=== PATIENT | female | born 1935 | race Two or more races ===

== ENCOUNTER 2020-09-18 22:55 | Inpatient (IN) | payer MEDICARE, OTHER ==
[~2020-09-18] VITALS: Ht 160 cm; Wt 81.6 kg
--- NOTE | 2020-09-18 23:04 | NUR ---
PT JOLYNN FROM [facility] C/O GENERALIZED WEAKNESS AND POOR INTAKE.PER EMS, PT USUALLY MORE RESPONSIVE TO NAME AND ABLE TO COMMUNICATE. PT DOES NOT RESPOND TO VERBAL COMANDS, BUT DOES RESPOND TO PAIN. PT A&OX0. PT BREATHING EVENLY AND UNLABORED. RT AC 20 G IV PLACED. BLOOD SAMPLE AND BLOOD CULTURES WERE OBTAINED AND SENT TO LAB. SKIN WARM AND INTACT. PT ATTACHED TO MONITOR AND POX. PT MADE COMFORTABLE WITH A BLANKET AND CALL LIGHT WITHIN REACH.
[2020-09-19 00:03] LABS: BASOPHILS # (AUTO) 0.1 /CMM (0.0-0.2); BASOPHILS % (AUTO) 0.5 % (0.0-2.0); EOSINOPHILS % (AUTO) 0.7 % (0.0-6.0); HEMATOCRIT 47 % (33-45); HEMOGLOBIN 14.6 g/dL (11.5-14.8); LYMPHOCYTES # (AUTO) 2.3 /CMM (0.8-4.8); LYMPHOCYTES % (AUTO) 19.7 % (20.0-44.0); MEAN CORPUSCULAR HGB CONC 31 g/dl (31.0-36.0); MEAN CORPUSCULAR VOLUME 92 fL (82-100); MONOCYTES # (AUTO) 0.7 /CMM (0.1-1.30); MONOCYTES % (AUTO) 6.4 % (2.0-12.0); NEUTROPHILS # (AUTO) 8.4 /CMM (1.8-8.9); NEUTROPHILS % (AUTO) 72.7 % (43.0-81.0); PLATELET COUNT (AUTO) 266 /CMM (150-450); RED BLOOD CELL COUNT(AUTO) 5.12 MIL/uL (4.0-5.2); WHITE BLOOD COUNT (AUTO) 11.6 K/uL (4.3-11.0)
--- NOTE | 2020-09-19 00:11 | NUR ---
urine sent to lab
--- NOTE | 2020-09-19 00:16 | NUR ---
covid swab sent to lab
[2020-09-19 00:21] LABS: ALANINE AMINOTRANSFERASE 66 U/L (12-78); ALKALINE PHOSPHATASE 176 U/L (46-116); ASPARTATE AMINOTRANSFERASE 42 U/L (15-37); BILIRUBIN,DIRECT 0.7 mg/dL (0.0-0.2); BILIRUBIN,TOTAL 1.4 mg/dL (0.2-1.0); CARBON DIOXIDE 29 mmol/L (21-32); CREATININE 1.7 mg/dL (0.6-1.3); GLUCOSE 166 mg/dL (74-106); POTASSIUM 4.2 mmol/L (3.5-5.1); TOTAL PROTEIN, SERUM 8.1 g/dL (6.4-8.2); UREA NITROGEN, BLOOD 60 mg/dL (7-18)
[2020-09-19 00:24] LABS: CHLORIDE 128 mmol/L (98-107); SODIUM SERUM 167 mmol/L (136-145)
[2020-09-19 00:27] LABS: BILIRUBIN,URINE MODERATE (NEGATIVE); COLOR,URINE DARK YELLOW (YELLOW); LEUKOCYTE ESTERASE ,URINE TRACE (NEGATIVE); NITRITE, URINE POSITIVE (NEGATIVE); PROTEIN,URINE NEGATIVE (NEGATIVE); UGLUCOSE NEGATIVE (NEGATIVE)
[2020-09-19 00:31] LABS: BACTERIA,URINE Few /HPF (None Seen); SQUAMOUS EPITHELIAL CELL,UR Few /HPF (None Seen); WBC,URINE 21-50 /HPF (0-3)
[2020-09-19] MEDS ORDERED: PIPERACILLIN /TAZOBACTAM 3.375 G in IV D5W 50 ML IV ONE (01:00)
[2020-09-19] MEDS ORDERED: VANCOMYCIN 1 GM in IV D5W 250 ML IV ONE (01:00)
[2020-09-19] MEDS ORDERED: IV NS 0.9% 1,000 ML BAG IV ONE (01:00)
[2020-09-19] MEDS ORDERED: VANCOMYCIN 1 GM VIAL ONE (01:04)
[2020-09-19] MEDS ORDERED: PIPERACILLIN /TAZOBACTAM 3.375 G VIAL IV ONE (01:05)
[2020-09-19 01:33] LABS: CALCIUM, SERUM 9.3 mg/dL (8.5-10.1)
--- NOTE | 2020-09-19 07:30 | NUR ---
REPORT GIVEN TO CAROL MURCIA FOR SON
[2020-09-19] MEDS ORDERED: Z GUARD REMEDY 2 OZ OINT TP PRN (08:30)
[2020-09-19] MEDS ORDERED: ONDANSETRON HCL/PF 4 MG/2 ML VIAL IVP PRN (08:30)
[2020-09-19] MEDS ORDERED: MAGNESIUM HYDROXIDE 30 ML UDC PO PRN (08:30)
[2020-09-19] MEDS ORDERED: MAG HYDROX/AL HYDROX/SIMETH 30 ML UDC PO PRN (08:30)
[2020-09-19] MEDS ORDERED: ZOLPIDEM TARTRATE 5 MG TABLET PO PRN (08:30)
[2020-09-19 09:06] LABS: BASOPHILS % (AUTO) 0.6 % (0.0-2.0); EOSINOPHILS % (AUTO) 1.4 % (0.0-6.0); HEMATOCRIT 39 % (33-45); HEMOGLOBIN 11.9 g/dL (11.5-14.8); LYMPHOCYTES # (AUTO) 1.4 /CMM (0.8-4.8); LYMPHOCYTES % (AUTO) 17.2 % (20.0-44.0); MEAN CORPUSCULAR HGB CONC 31 g/dl (31.0-36.0); MEAN CORPUSCULAR VOLUME 93 fL (82-100); MONOCYTES # (AUTO) 0.7 /CMM (0.1-1.30); MONOCYTES % (AUTO) 8.2 % (2.0-12.0); NEUTROPHILS % (AUTO) 72.6 % (43.0-81.0); PLATELET COUNT (AUTO) 161 /CMM (150-450); RED BLOOD CELL COUNT(AUTO) 4.19 MIL/uL (4.0-5.2); WHITE BLOOD COUNT (AUTO) 8.3 K/uL (4.3-11.0)
[2020-09-19 10:30] LABS: ALBUMIN 2.2 g/dL (3.4-5.0); BILIRUBIN,TOTAL 0.9 mg/dL (0.2-1.0); CALCIUM, SERUM 7.4 mg/dL (8.5-10.1); CREATININE 1.1 mg/dL (0.6-1.3); MAGNESIUM 2.5 mg/dL (1.8-2.4); PHOSPHORUS 2.5 mg/dL (2.5-4.9); POTASSIUM 3.1 mmol/L (3.5-5.1); TOTAL PROTEIN, SERUM 5.9 g/dL (6.4-8.2)
[2020-09-19] MEDS ORDERED: METO25TA20 PO (10:36)
[2020-09-19] MEDS ORDERED: DOCU-141 PO (10:36)
[2020-09-19] MEDS ORDERED: MEMA10TA PO (10:36)
[2020-09-19] MEDS ORDERED: FURO-145 PO (10:36)
[2020-09-19] MEDS ORDERED: MULT-447 PO (10:36)
[2020-09-19] MEDS ORDERED: ASPI-1169 PO (10:36)
[2020-09-19] MEDS ORDERED: MELA5TAB PO (10:36)
[2020-09-19] MEDS ORDERED: ASCO100031 PO (10:36)
[2020-09-19] MEDS ORDERED: POTA-10 PO (10:36)
[2020-09-19] MEDS ORDERED: ZINC50TA69 PO (10:36)
[2020-09-19] MEDS ORDERED: DONE5TAB7 PO (10:36)
[2020-09-19] MEDS ORDERED: DEXT15DR6 OP (10:36)
[2020-09-19] MEDS ORDERED: QUERCETIN PO (10:36)
[2020-09-19] MEDS ORDERED: PSYL283P40 PO (10:36)
[2020-09-19] MEDS ORDERED: DIVA250T PO (10:36)
[2020-09-19] MEDS ORDERED: LATA2.5D2 RIGHTEYE (10:36)
[2020-09-19] MEDS ORDERED: CHOL200013 PO (10:36)
[2020-09-19] MEDS ORDERED: SIMV10TA2 PO (10:36)
[2020-09-19] MEDS ORDERED: DIVA-78 PO (10:36)
[2020-09-19] MEDS ORDERED: LOSA100T3 PO (10:36)
[2020-09-19] MEDS ORDERED: POTASSIUM CL. PREMIX PERIPHER. 200 ML ONE (15:38)
[2020-09-19] MEDS: POTASSIUM CL. PREMIX PERIPHER. 50 ML IV SCH ×4 (15:40→19:00)
[2020-09-19] MEDS: MEMANTINE HCL 5 MG TABLET PO SCH (17:54)
[2020-09-19] MEDS: DIVALPROEX SODIUM 125 MG TABLET.DR PO SCH (17:54)
--- NOTE | 2020-09-19 19:30 | NUR ---
REC'D PT IN BED AWAKE, NON- VERBAL . BREATHING EVENLY. NO OSB. ON R/A. FIGUEROA WELL. SATTING 95%. ON ONGOING KCL IV WITH NO A/R. NO S/S OF PAIN OR DISCOMFORT. F/C IN PLACE. DRANINIG CLEAR YELLOW URINE. VSS. HOB ELEVATED. CALL LIGHT WITHIN REACH. WILL CONT TO MONITOR ,
[2020-09-19 20:42] LABS: BILIRUBIN,URINE NEGATIVE (NEGATIVE); COLOR,URINE YELLOW (YELLOW); LEUKOCYTE ESTERASE ,URINE TRACE (NEGATIVE); NITRITE, URINE NEGATIVE (NEGATIVE); PH,URINE 5.5 (5.0-8.0); PROTEIN,URINE TRACE mg/dl (NEGATIVE); UGLUCOSE NEGATIVE (NEGATIVE)
[2020-09-19 20:43] LABS: EOSINOPHIL,URINE None Seen
[2020-09-19 20:48] LABS: BACTERIA,URINE 1+ /HPF (None Seen); COARSE GRANULAR CASTS,URINE Few /LPF (None Seen); HYALINE CASTS, URINE Few /LPF (None Seen); RBC,URINE 21-50 /HPF (0-2); SQUAMOUS EPITHELIAL CELL,UR Few /HPF (None Seen); WBC,URINE 21-50 /HPF (0-3)
[2020-09-19] MEDS ORDERED: SIMVASTATIN 20 MG TABLET ONE (20:52)
[2020-09-19] MEDS: SIMVASTATIN 10 MG TABLET PO SCH (21:53)
--- NOTE | 2020-09-20 00:27 | NUR ---
Patient is resting comfortably in bed with eyes closed. Easily aroused. VSS
[2020-09-20 04:38] LABS: BASOPHILS % (AUTO) 0.6 % (0.0-2.0); EOSINOPHILS % (AUTO) 2.9 % (0.0-6.0); HEMATOCRIT 42 % (33-45); HEMOGLOBIN 13.1 g/dL (11.5-14.8); LYMPHOCYTES # (AUTO) 1.2 /CMM (0.8-4.8); LYMPHOCYTES % (AUTO) 18.5 % (20.0-44.0); MEAN CORPUSCULAR HGB CONC 31 g/dl (31.0-36.0); MEAN CORPUSCULAR VOLUME 93 fL (82-100); MONOCYTES # (AUTO) 0.4 /CMM (0.1-1.30); MONOCYTES % (AUTO) 6.5 % (2.0-12.0); NEUTROPHILS # (AUTO) 4.6 /CMM (1.8-8.9); NEUTROPHILS % (AUTO) 71.5 % (43.0-81.0); PLATELET COUNT (AUTO) 165 /CMM (150-450); RED BLOOD CELL COUNT(AUTO) 4.56 MIL/uL (4.0-5.2); WHITE BLOOD COUNT (AUTO) 6.5 K/uL (4.3-11.0)
[2020-09-20 04:50] LABS: CHOLESTEROL 116 mg/dL (<200); CREATINE KINASE, TOTAL 103 U/L (26-192); HDL CHOLESTEROL 34 mg/dL (40-60); LDL 63 mg/dL (0-99); TRIGLYCERIDES 145 mg/dL (30-150)
[2020-09-20 04:54] LABS: ALANINE AMINOTRANSFERASE 40 U/L (12-78); ALBUMIN 2.3 g/dL (3.4-5.0); ALKALINE PHOSPHATASE 128 U/L (46-116); ASPARTATE AMINOTRANSFERASE 26 U/L (15-37); BILIRUBIN,TOTAL 0.7 mg/dL (0.2-1.0); CALCIUM, SERUM 8.4 mg/dL (8.5-10.1); CARBON DIOXIDE 23 mmol/L (21-32); CREATININE 0.7 mg/dL (0.6-1.3); GLUCOSE 118 mg/dL (74-106); MAGNESIUM 2.7 mg/dL (1.8-2.4); PHOSPHORUS 2.2 mg/dL (2.5-4.9); POTASSIUM 3.9 mmol/L (3.5-5.1); TOTAL PROTEIN, SERUM 6.2 g/dL (6.4-8.2); UREA NITROGEN, BLOOD 35 mg/dL (7-18)
[2020-09-20 04:55] LABS: CHLORIDE 133 mmol/L (98-107); SODIUM SERUM 169 mmol/L (136-145)
--- NOTE | 2020-09-20 05:07 | NUR ---
PT WAS CLEANED, DRIED AND REPOSITIONED . WARM BLANKET PROVIDED. WILL CONT TO MONITOR ,
--- NOTE | 2020-09-20 07:12 | NUR ---
Call from lab. Compa PCR positive.
[2020-09-20] MEDS ORDERED: ASPIRIN 81 MG TAB.CHEW ONE (08:41)
[2020-09-20] MEDS: DIVALPROEX SODIUM 125 MG TABLET.DR PO SCH ×3 (10:00→17:48)
[2020-09-20] MEDS: ASPIRIN 81 MG TAB.CHEW PO SCH (10:00)
[2020-09-20] MEDS: DONEPEZIL 5 MG TABLET PO SCH (10:00)
[2020-09-20] MEDS: DOCUSATE SODIUM 250 MG CAPSULE PO SCH (10:00)
[2020-09-20] MEDS: MEMANTINE HCL 5 MG TABLET PO SCH ×2 (10:00→17:48)
--- NOTE | 2020-09-20 12:39 | NUR ---
REPORT GIVEN TO CAROL ALCOCER FOR SON
[2020-09-20 13:00] VITALS: BP 130/62
--- NOTE | 2020-09-20 13:00 | NUR ---
PT TRANSPORTED TO UNIT ON GURNEY WITH EMT AND RN @ BEDSIDE W/ ACLS PROTOCOL. NAD NOTED DURING TRANSPORT.
--- NOTE | 2020-09-20 13:00 | NUR ---
MS ADMISSION NOTES ADMITTED PT FROM ER WITH DX OF UROSEPSIS.PT IS APHASIC,WITH FLAT AFFECT.RESPONSIVE TO TACTILE STIMULI ONLY.NO SOB ON ROOM AIR WITH O2 SAT OF 98%.WITH DAVENPORT CATHETER INTACT DRAINING YELLOW URINE OUT PUT.WITH RA IV H/L INTACT AND PATENT SKIN INTACT.NO COUGHING OR SOB NOTED. TURNED EVERY TWO HRS..NEEDS ANTICIPATED AND ATTENDED.
--- NOTE | 2020-09-20 13:03 | NUR ---
PT TRANSPORTED TO UNIT ON GURNEY WITH EMT AND RN AT BEDSIDE W/ ACLS PROTOCOL. NAD NOTED DURING TRANSPORT
[2020-09-20] MEDS: IV D5W 1,000 ML IV PRN (14:39)
[2020-09-20] MEDS ORDERED: NEUTRA PHOS 1 POWD.PACKET PO ONE (15:00)
[2020-09-20] MEDS ORDERED: CEFTRIAXONE 1 G VIAL IM SCH (17:30)
--- NOTE | 2020-09-20 18:30 | NUR ---
PT RESTING IN BED WITH NO S/S OF PAIN OR DISTRESS.WILL MONITOR.
--- NOTE | 2020-09-20 19:30 | NUR ---
MS/RN OPENING NOTES: RECEIVED PT. A/OX1. PER DAY SHIFT RN, PT IS NOT VERBALLY RESPONSIVE. HOWEVER, PT IS NOTED TO BE MUMBLING DANISH WORDS LIGHTLY. NOTED WITH FC, DRAINING CLEAR YELLOW OUTPUT. SKIN INTACT. IV ACCESS ON THE RIGHT FA #20G APPEARS TO BE INFILTRATED. DISCONNECTED PT TO IVF AND ELEVATED EXTREMITY WITH A PILLOW FOR NOW. WILL ATTEMPT TO INSERT A NEW LINE. SAFETY MEASURES ARE IN PLACE. BED IN LOW, LOCKED POSITION WITH SR X2. CALL LIGHT WITHIN REACH. WILL CONTINUE TO MONITOR ACCORDINGLY.
[2020-09-20 20:00] VITALS: BP 140/74
[2020-09-20] MEDS: CEFTRIAXONE 1 G in IV D5W 50 ML IV SCH (20:54)
[2020-09-20] MEDS: SIMVASTATIN 10 MG TABLET PO SCH (21:29)
[2020-09-20] MEDS: ENOXAPARIN SODIUM 40 MG/0.4 ML DISP.SYRIN SQ SCH (21:30)
[2020-09-20 21:31] VITALS: BP 148/65
--- NOTE | 2020-09-20 23:28 | NUR ---
TELE/RN NOTES: PT. IS A HARD STICK. CALLED ELLIOT NURSE TO ATTEMPT INSERT AN IV ACCESS. TEMPORARY IV ACCESS IS ON THE LEFT FOOT #22G, INTACT AND PATENT, NOTIFIED DUANE MONAHAN, LEAD SYSTEMS ENGINEER DNP. PER DWAYNE ZEPEDA TO PLACE AN ORDER FOR MIDLINE. NURSING CUSTOMER SERVICE ASSOCIATE SONY MATOS NOTIFIED AND PER NURSING SUP, THE PICC LINE NURSE WILL COME TOMORROW MORNING.
[2020-09-21 02:01] VITALS: BP 158/95
[2020-09-21] MEDS: IV D5W 1,000 ML IV PRN ×2 (03:40→14:38)
[2020-09-21 05:08] VITALS: BP 152/71
--- NOTE | 2020-09-21 07:06 | NUR ---
RN OPENING NOTES RECEIVED PT RESTING IN BED AT THIS TIME. PT IS AOX1. AFGHAN SPEAKING. NO SOB NOTED, NO S/S OF ANY APPARENT DISTRESS NOTED. NO C/O PAIN NOTED AT THIS TIME. RESPIRATIONS ARE EVEN AND UNLABORED. PT STABLE ON RA. IV ACCESS NOTED IN LEFT FOOT G#22, INTACT, PATENT AND FLUSHING WELL. DAVENPORT CATHETER IN PLACE, DRAINING TO GRAVITY, CLEAR YELLOW URINE OUTPUT. ASPIRATION AND SAFETY PRECAUTION IN PLACE AND MAINTAINED AT ALL TIMES. BED IN LOWEST LOCKED POSITION, HOB ELEVATED, SIDE RAILS UP X 2, CALL LIGHT AND TABLE WITHIN REACH . WILL CONTINUE TO MONITOR
--- NOTE | 2020-09-21 07:07 | NUR ---
RN CLOSING NOTES PT AWAKE IN BED AT THIS TIME. PT REMAINED STABLE THROUGHOUT SHIFT. ALL CARE, NEED AND MEDICATIONS ADMINISTERED ANTICIPATED PER ORDER. PT KEPT CLEAN AND DRY. PT REMAINED STABLE ON RA. BILATERAL HEELS ELEVATED. PT REPOSITIONED Q2HR AND PRN. ASPIRATION AND SAFETY PRECAUTION IN PLACE AND MAINTAINED AT ALL TIMES. BED IN LOWEST LOCKED POSITION, HOB ELEVATED, SIDE RAILS UP X 2, CALL LIGHT AND TABLE WITHIN REACH. ENDORSED TO SENIOR NET WEB DEVELOPER NURSE FOR SON Addendum: 09/21/20 at 2003 by PAPI FERMIN RN RN CLOSING NOTES PT AWAKE IN BED AT THIS TIME. PT REMAINED STABLE THROUGHOUT SHIFT. ALL CARE, NEED AND MEDICATIONS ADMINISTERED ANTICIPATED PER ORDER. PT KEPT CLEAN AND DRY. PT REMAINED STABLE ON RA. BILATERAL HEELS ELEVATED. PT REPOSITIONED Q2HR AND PRN. ASPIRATION AND SAFETY PRECAUTION IN PLACE AND MAINTAINED AT ALL TIMES. BED IN LOWEST LOCKED POSITION, HOB ELEVATED, SIDE RAILS UP X 2, CALL LIGHT AND TABLE WITHIN REACH. ENDORSED TO SENIOR NET WEB DEVELOPER NURSE FOR SON Addendum: 09/21/20 at 2006 by PAPI FERMIN RN USER ERROR. WRONG TIME INPUT
--- NOTE | 2020-09-21 07:09 | NUR ---
MS/RN CLOSING NOTES: PT REMAINED STABLE ALL NIGHT. VS WNL. AWAITING FOR MIDLINE PLACEMENT, ALL DUE MEDS GIVEN ORDERED. ALL NURSING NEEDS MET AND RENDERED. NO SIGNIFICANT CHANGES IN CONDITION. WILL CONTINUE PLAN OF CARE AND ENDORSE TO DAY SHIFT RN FOR SON.
[2020-09-21 08:00] VITALS: BP 130/58
[2020-09-21 08:11] LABS: CALCIUM, SERUM 8.2 mg/dL (8.5-10.1); CREATININE 0.8 mg/dL (0.6-1.3); PHOSPHORUS 2.2 mg/dL (2.5-4.9); POTASSIUM 3.3 mmol/L (3.5-5.1)
--- NOTE | 2020-09-21 08:38 | NUR ---
WOUND CARE CONSULT: REVIEWED CHART AND NURSING DOCUMENTATION. SPOKE WITH RN. PER RN, SKIN IS INTACT. RECOMMENDATIONS MADE FOR SKIN PROTECTION. CURRENT ALIS SCORE IS 14. MD IN AGREEMENT WITH PLAN OF CARE.
[2020-09-21] MEDS ORDERED: POTASSIUM PHOSPHATE MM 15 MMOL in IV NS 0.9% 250 ML IV SCH (09:00)
[2020-09-21] MEDS: DIVALPROEX SODIUM 125 MG TABLET.DR PO SCH ×3 (09:33→16:56)
[2020-09-21] MEDS: MEMANTINE HCL 5 MG TABLET PO SCH ×2 (09:33→16:56)
[2020-09-21] MEDS: DONEPEZIL 5 MG TABLET PO SCH (09:33)
[2020-09-21] MEDS: ASPIRIN 81 MG TAB.CHEW PO SCH (09:34)
[2020-09-21] MEDS: DOCUSATE SODIUM 250 MG CAPSULE PO SCH (09:34)
[2020-09-21] MEDS: POTASSIUM PHOSPHATE MM 7.5 MMOL in IV NS 0.9% 100 ML IV SCH ×2 (10:02→13:17)
[2020-09-21 13:06] LABS: *SPE A/G RATIO 0.8 (0.7-1.7); *SPE ALBUMIN 2.9 g/dL (2.9-4.4); *SPE ALPHA-1-GLOBULIN 0.3 g/dL (0.0-0.4); *SPE ALPHA-2-GLOBULIN 1.1 g/dL (0.4-1.0); *SPE BETA GLOBULIN 1.2 g/dL (0.7-1.3); *SPE GLOBULIN, TOTAL 3.7 g/dL (2.2-3.9); *SPE M-SPIKE 0.1 g/dL (Not Observed); *SPEGAMMA GLOBULIN 1.2 g/dL (0.4-1.8)
--- NOTE | 2020-09-21 13:30 | NUR ---
CASTRO PT'S DAUGHTER( [phone]) CALLED AND WAS UPDATED. WILL CONTINUE WITH PLAN OF CARE
[2020-09-21 16:00] VITALS: BP 124/66
[2020-09-21] MEDS ORDERED: CEFTRIAXONE 1 G VIAL IV SCH (17:30)
[2020-09-21 20:00] VITALS: BP_SYST 108; BP_SYST 159; BP_DIAS 50; BP_DIAS 92
--- NOTE | 2020-09-21 20:05 | NUR ---
RN CLOSING NOTES PT AWAKE IN BED AT THIS TIME. PT REMAINED STABLE THROUGHOUT SHIFT. ALL CARE, NEED AND MEDICATIONS ADMINISTERED ANTICIPATED PER ORDER. PT KEPT CLEAN AND DRY. PT REMAINED STABLE ON RA. BILATERAL HEELS ELEVATED. PT REPOSITIONED Q2HR AND PRN. ASPIRATION AND SAFETY PRECAUTION IN PLACE AND MAINTAINED AT ALL TIMES. BED IN LOWEST LOCKED POSITION, HOB ELEVATED, SIDE RAILS UP X 2, CALL LIGHT AND TABLE WITHIN REACH. ENDORSED TO PRESIDENTIAL HELICOPTER CREW CHIEF NURSE FOR SON
--- NOTE | 2020-09-21 20:06 | NUR ---
MS/RN OPENING NOTES: RECEIVED PT. A/OX1. RESTING IN BED COMFORTABLY. MUMBLES YEMENI WORDS FROM TIME TO TIME. NOTED WITH FC, DRAINING CLEAR YELLOW OUTPUT. SKIN INTACT. IV ACCESS ON THE LEFT FOOT #22G INTACT AND PATENT. NEW IV MIDLINE PLACED TODAY BY FIDENCIO IZAGUIRRE, MIDLINE NURSE. CAMILA MIDLINE #18G. SAFETY MEASURES ARE IN PLACE. BED IN LOW, LOCKED POSITION WITH SR X2. CALL LIGHT WITHIN REACH. WILL CONTINUE TO MONITOR ACCORDINGLY THROUGHOUT THE SHIFT.
[2020-09-21] MEDS: CEFTRIAXONE 1 G in IV D5W 50 ML IV SCH (20:52)
[2020-09-21] MEDS: ENOXAPARIN SODIUM 40 MG/0.4 ML DISP.SYRIN SQ SCH (21:19)
[2020-09-21] MEDS: SIMVASTATIN 10 MG TABLET PO SCH (21:20)
[2020-09-22] MEDS: IV D5W 1,000 ML IV PRN ×2 (04:23→14:42)
--- NOTE | 2020-09-22 07:06 | NUR ---
OPERATING ROOM ASSISTANT OPENING NOTES RECEIVED PT RESTING COMFORTABLY IN BED AT THIS TIME. PT ABLE TO RESPOND TO NAME, WOLOF SPEAKING. AOX1. NO SOB NOTED, NO S/S OF ANY APPARENT DISTRESS NOTED. NO C/O PAIN NOTED AT THIS TIME. RESPIRATIONS ARE EVEN AND UNLABORED WITH EQUAL RISE AND FALL IN CHEST. PT STABLE ON RA. IV ACCESS NOTED IN LEFT FOOT G#22 AND CAMILA MIDLINE, BOTH INTACT, PATENT AND FLUSHING WELL. DAVENPORT CATHETER IN PLACE DRAINING TO GRAVITY CLEAR YELLOW URINE OUTPUT. ASPIRATION, AND SAFETY PRECAUTION IN PLACE AND MAINTAINED AT ALL TIMES. BED IN LOWEST LOCKED POSITION, HOB ELEVATED, SIDE RAILS UP X 2, CALL LIGHT AND TABLE WITHIN REACH. WILL CONTINUE WITH PLAN OF CARE.
--- NOTE | 2020-09-22 07:51 | NUR ---
MS/RN CLOSING NOTES: PT REMAINED STABLE ALL NIGHT. VS WNL. NO SIGNIFICANT CHANGES IN CONDITION. ALL DUE MEDS GIVEN ORDERED. ALL NURSING NEEDS MET AND RENDERED. NO SIGNIFICANT CHANGES IN CONDITION. SAFETY MEASURES IN PLACE. BED ALARM ON. CALL LIGHT WITHIN REACH. WILL CONTINUE PLAN OF CARE. ENDORSED TO DAY SHIFT RN FOR SON.
[2020-09-22 08:00] VITALS: BP 130/80
[2020-09-22 08:38] LABS: BASOPHILS % (AUTO) 0.6 % (0.0-2.0); EOSINOPHILS % (AUTO) 2.7 % (0.0-6.0); HEMATOCRIT 30 % (33-45); HEMOGLOBIN 9.7 g/dL (11.5-14.8); LYMPHOCYTES # (AUTO) 1.8 /CMM (0.8-4.8); LYMPHOCYTES % (AUTO) 32.3 % (20.0-44.0); MEAN CORPUSCULAR HGB CONC 33 g/dl (31.0-36.0); MEAN CORPUSCULAR VOLUME 89 fL (82-100); MONOCYTES # (AUTO) 0.4 /CMM (0.1-1.30); MONOCYTES % (AUTO) 6.5 % (2.0-12.0); NEUTROPHILS # (AUTO) 3.2 /CMM (1.8-8.9); NEUTROPHILS % (AUTO) 57.9 % (43.0-81.0); PLATELET COUNT (AUTO) 143 /CMM (150-450); RED BLOOD CELL COUNT(AUTO) 3.34 MIL/uL (4.0-5.2); WHITE BLOOD COUNT (AUTO) 5.5 K/uL (4.3-11.0)
[2020-09-22] MEDS: DIVALPROEX SODIUM 125 MG TABLET.DR PO SCH ×3 (08:53→18:00)
[2020-09-22] MEDS: DOCUSATE SODIUM 250 MG CAPSULE PO SCH (08:53)
[2020-09-22] MEDS: DONEPEZIL 5 MG TABLET PO SCH (08:53)
[2020-09-22] MEDS: ASPIRIN 81 MG TAB.CHEW PO SCH (08:53)
[2020-09-22] MEDS: MEMANTINE HCL 5 MG TABLET PO SCH ×2 (08:53→18:00)
[2020-09-22 10:36] LABS: CALCIUM, SERUM 7.5 mg/dL (8.5-10.1); CREATININE 0.6 mg/dL (0.6-1.3); PHOSPHORUS 2.5 mg/dL (2.5-4.9); POTASSIUM 2.9 mmol/L (3.5-5.1)
[2020-09-22] MEDS ORDERED: POTASSIUM CHLORIDE 20 MEQ TAB.PRT.SR PO ONE (12:30)
--- NOTE | 2020-09-22 12:31 | NUR ---
PT'S POTASSIUM OF 2.9, RECEIVED ORDERS FROM DR GARRETT FOR POTASSIUM CHLORIDE 80MEQ PO X1 AT THIS TIME. ORDERS READ BACK AND CARRIED OUT. WILL CONTINUE TO MONITOR
--- NOTE | 2020-09-22 12:46 | NUR ---
PT'S NOTED WITH POOR PO INTAKE, RECEIVED ORDERS FROM DR GARRETT FOR ENSURE CHOCOLATE PO TID WITH EACH MEALS. ORDERS READ BACK AND CARRIED OUT. WILL CONTINUE TO MONITOR
[2020-09-22 16:00] VITALS: BP 158/68
[2020-09-22] MEDS: ENSURE ENLIVE CHOC 237 ML CAN PO SCH (18:00)
--- NOTE | 2020-09-22 19:03 | NUR ---
[facility] CLOSING NOTES PT AWAKE IN BED AT THIS TIME. PT REMAINED STABLE THROUGHOUT SHIFT. ALL CARE, NEED, MEDICATIONS AND TREATMENT ADMINISTERED ANTICIPATED PER ORDER. PT KEPT CLEAN AND DRY. PT REPOSITIONED Q2HR AND PRN. DAVENPORT CATHETER CARE PROVIDED. ASPIRATION, RESPIRATORY, SAFETY PRECAUTION IN PLACE AND MAINTAINED AT ALL TIMES. BED IN LOWEST LOCKED POSITION, HOB ELEVATED, SIDE RAILS UP X 2, CALL LIGHT AND TABLE WITHIN REACH. ENDORSED TO TARGET AIRCRAFT CONTROLLER NURSE FOR SON
--- NOTE | 2020-09-22 19:25 | NUR ---
MS/RN OPENING NOTES: RECEIVED PT RESTING COMFORTABLY IN BED AT THIS TIME. PT ABLE TO RESPOND TO NAME, BENGALI SPEAKING. MORE AWAKE THAN YESTERDAY. AOX1. NO SOB NOTED, NO S/S OF ANY APPARENT DISTRESS NOTED. NO C/O PAIN NOTED AT THIS TIME. RESPIRATIONS ARE EVEN AND UNLABORED WITH EQUAL RISE AND FALL IN CHEST. PT STABLE ON RA. IV ACCESS NOTED IN LEFT FOOT G#22 AND CAMILA MIDLINE, BOTH INTACT, PATENT AND FLUSHING WELL. DAVENPORT CATHETER IN PLACE DRAINING TO GRAVITY CLEAR YELLOW URINE OUTPUT. ASPIRATION, AND SAFETY PRECAUTION IN PLACE AND MAINTAINED AT ALL TIMES. BED IN LOWEST LOCKED POSITION, HOB ELEVATED, SIDE RAILS UP X 2, CALL LIGHT AND TABLE WITHIN REACH. WILL CONTINUE WITH PLAN OF CARE.
[2020-09-22 20:00] VITALS: BP 118/58
[2020-09-22] MEDS: CEFTRIAXONE 1 G in IV D5W 50 ML IV SCH (20:58)
[2020-09-22] MEDS: SIMVASTATIN 10 MG TABLET PO SCH (21:02)
[2020-09-22] MEDS: ENOXAPARIN SODIUM 40 MG/0.4 ML DISP.SYRIN SQ SCH (21:02)
[2020-09-23] MEDS: IV D5W 1,000 ML IV PRN ×2 (02:40→13:15)
--- NOTE | 2020-09-23 06:18 | NUR ---
MS/RN CLOSING NOTES: PT REMAINS COMFORTABLY IN BED AT THIS TIME. NO SIGNIFICANT CHANGES IN CONDITION. AOX1. NO SOB NOTED, NO S/S OF ANY APPARENT DISTRESS NOTED. NO C/O PAIN NOTED AT THIS TIME. RESPIRATIONS ARE EVEN AND UNLABORED WITH EQUAL RISE AND FALL IN CHEST. PT STABLE ON RA. ALL DUE MEDS GIVEN ORDERED. ALL NURSING NEEDS MET AND RENDERED, ASPIRATION, AND SAFETY PRECAUTION IN PLACE AND MAINTAINED AT ALL TIMES. BED IN LOWEST LOCKED POSITION, HOB ELEVATED, SIDE RAILS UP X 2, CALL LIGHT AND TABLE WITHIN REACH. WILL CONTINUE WITH PLAN OF CARE AND ENDORSE TO DAY SHIFT RN.
--- NOTE | 2020-09-23 07:30 | NUR ---
MS/RN OPENING NOTE Received patient resting in bed, easily arousable to tactile and verbal stimulation, A&O x 1, Icelandic speaking. No complaints of pain/discomfort at this time. Breathing even and non-labored on RA, no SOB noted. No cardiac distress noted. IV access noted on L foot #22g and CAMIAL midline #18g, both patent and intact, and flushing well. Running D5W @100 ml/hr. [place]ont[place] in place, draining clear yellow urine well. Bed locked to its lowest position, side rails x 2 up, bed alarm on. Will continue with current medical management.
[2020-09-23 08:00] VITALS: BP 133/57
[2020-09-23] MEDS: ASPIRIN 81 MG TAB.CHEW PO SCH (08:53)
[2020-09-23] MEDS: ENSURE ENLIVE CHOC 237 ML CAN PO SCH ×3 (08:53→16:08)
[2020-09-23] MEDS: DIVALPROEX SODIUM 125 MG TABLET.DR PO SCH ×3 (08:53→16:07)
[2020-09-23] MEDS: MEMANTINE HCL 5 MG TABLET PO SCH ×2 (08:53→16:07)
[2020-09-23] MEDS: DONEPEZIL 5 MG TABLET PO SCH (08:54)
[2020-09-23] MEDS: DOCUSATE SODIUM 250 MG CAPSULE PO SCH (08:54)
[2020-09-23 10:14] LABS: BASOPHILS % (AUTO) 0.3 % (0.0-2.0); EOSINOPHILS % (AUTO) 2.6 % (0.0-6.0); HEMATOCRIT 30 % (33-45); HEMOGLOBIN 9.9 g/dL (11.5-14.8); LYMPHOCYTES # (AUTO) 1.7 /CMM (0.8-4.8); LYMPHOCYTES % (AUTO) 33.4 % (20.0-44.0); MEAN CORPUSCULAR HGB CONC 33 g/dl (31.0-36.0); MEAN CORPUSCULAR VOLUME 89 fL (82-100); MONOCYTES # (AUTO) 0.4 /CMM (0.1-1.30); MONOCYTES % (AUTO) 6.9 % (2.0-12.0); NEUTROPHILS % (AUTO) 56.8 % (43.0-81.0); PLATELET COUNT (AUTO) 127 /CMM (150-450); RED BLOOD CELL COUNT(AUTO) 3.37 MIL/uL (4.0-5.2); WHITE BLOOD COUNT (AUTO) 5.2 K/uL (4.3-11.0)
[2020-09-23 11:18] LABS: ALBUMIN 1.8 g/dL (3.4-5.0); BILIRUBIN,TOTAL 0.3 mg/dL (0.2-1.0); CALCIUM, SERUM 7.5 mg/dL (8.5-10.1); CREATININE 0.7 mg/dL (0.6-1.3); MAGNESIUM 1.8 mg/dL (1.8-2.4); POTASSIUM 3.3 mmol/L (3.5-5.1); TOTAL PROTEIN, SERUM 5.2 g/dL (6.4-8.2)
[2020-09-23 12:07] VITALS: BP 131/90
[2020-09-23] MEDS ORDERED: POTASSIUM CHLORIDE 20 MEQ TAB.PRT.SR PO SCH (13:00)
[2020-09-23] MEDS ORDERED: NEUTRA PHOS 1 POWD.PACKET PO ONE (15:30)
[2020-09-23 16:49] VITALS: BP 117/60
--- NOTE | 2020-09-23 19:42 | NUR ---
MS/RN CLOSING NOTE Patient resting in bed, easily arousable to tactile and verbal stimulation, A&O x 1. No complaints of pain/discomfort throughout shift. Breathing even and non-labored on RA, no SOB noted. No cardiac distress noted. IV access noted on L foot #22g and CAMILA midline #18g, both remain patent and intact, and flushing well. Running D5W @100 ml/hr. Miramontes in place, draining clear yellow urine well. Fall precautions maintained. Will endorse to autism teacher nurse.
--- NOTE | 2020-09-23 19:50 | NUR ---
MS/RN NOTES RECEIVED PATIENT IN BED RESTING. PATIENT IS ALERT AND ORIENTED X 1. STATES NO PAIN AT THIS TIME. PATIENTS BREATHING IS EVEN AND UNLABORED. NO SIGNS OF RESPIRATORY DISTRESS NOTED. PATIENT HAD IV ACCESS ON LEFT UA MIDLINE #18G RUNNING D5W AT 100 ML/HR. SAFETY MEASURES ARE IN PLACE, BED IS LOCKED AND PLACED IN THE LOWEST POSITION, CALL LIGHT IS WITHIN REACH. WILL CONTINUE TO MONITOR THROUGH OUT SHIFT.
[2020-09-23] MEDS: CEFTRIAXONE 1 G in IV D5W 50 ML IV SCH (20:05)
[2020-09-23 20:21] VITALS: BP 99/57
[2020-09-23] MEDS: SIMVASTATIN 10 MG TABLET PO SCH (21:03)
[2020-09-23] MEDS: ENOXAPARIN SODIUM 40 MG/0.4 ML DISP.SYRIN SQ SCH (21:04)
--- NOTE | 2020-09-24 07:00 | NUR ---
MS/RN CLOSING NOTES PATIENT IN BED RESTING. PATIENT IS ALERT AND ORIENTED X 1. STATES NO PAIN AT THIS TIME. PATIENTS BREATHING IS EVEN AND UNLABORED. NO SIGNS OF RESPIRATORY DISTRESS NOTED. PATIENT HAD IV ACCESS ON LEFT UA MIDLINE #18G RUNNING D5W AT 100 ML/HR. ALL NEEDS HAVE BEEN MET DURING SHIFT.SAFETY MEASURES ARE IN PLACE, BED IS LOCKED AND PLACED IN THE LOWEST POSITION, CALL LIGHT IS WITHIN REACH. WILL ENDORSE CARE TO DAY SHIFT NURSE.
[2020-09-24 07:11] LABS: BASOPHILS % (AUTO) 0.5 % (0.0-2.0); HEMATOCRIT 31 % (33-45); HEMOGLOBIN 10.5 g/dL (11.5-14.8); LYMPHOCYTES # (AUTO) 1.8 /CMM (0.8-4.8); LYMPHOCYTES % (AUTO) 28.7 % (20.0-44.0); MEAN CORPUSCULAR HGB CONC 33 g/dl (31.0-36.0); MEAN CORPUSCULAR VOLUME 87 fL (82-100); MONOCYTES # (AUTO) 0.4 /CMM (0.1-1.30); MONOCYTES % (AUTO) 6.4 % (2.0-12.0); NEUTROPHILS # (AUTO) 3.8 /CMM (1.8-8.9); NEUTROPHILS % (AUTO) 61.4 % (43.0-81.0); PLATELET COUNT (AUTO) 152 /CMM (150-450); RED BLOOD CELL COUNT(AUTO) 3.58 MIL/uL (4.0-5.2); WHITE BLOOD COUNT (AUTO) 6.2 K/uL (4.3-11.0)
--- NOTE | 2020-09-24 07:54 | NUR ---
OPEN NOTES PATIENT IS AWAKE A/O X 1 IN ROOM AIR WITH NO SIGNS OF DISTRESS. IV L FOOT#22G AND L UA MIDLINE INTACT RUNNING D5W AT 100 ML/HR. DAVENPORT CATHETER INTACT. NO COMPLAIN OF PAIN AT THIS TIME. SAFETY MEASURES ARE APPLIED BED IS IN THE LOWEST POSITION SIDE RAILS UP X 2. CALL LIGHT WITHIN REACH WILL CONTINUE TO MONITOR.
[2020-09-24 08:00] VITALS: BP 107/57
[2020-09-24] MEDS: ENSURE ENLIVE CHOC 237 ML CAN PO SCH ×2 (08:00→12:54)
[2020-09-24 08:03] LABS: BILIRUBIN,TOTAL 0.4 mg/dL (0.2-1.0); CALCIUM, SERUM 7.7 mg/dL (8.5-10.1); CREATININE 0.6 mg/dL (0.6-1.3); PHOSPHORUS 2.4 mg/dL (2.5-4.9); POTASSIUM 3.4 mmol/L (3.5-5.1); TOTAL PROTEIN, SERUM 5.7 g/dL (6.4-8.2)
[2020-09-24] MEDS: DOCUSATE SODIUM 250 MG CAPSULE PO SCH (09:45)
[2020-09-24] MEDS: MEMANTINE HCL 5 MG TABLET PO SCH (09:46)
[2020-09-24] MEDS: DONEPEZIL 5 MG TABLET PO SCH (09:46)
[2020-09-24] MEDS: DIVALPROEX SODIUM 125 MG TABLET.DR PO SCH ×2 (09:46→13:08)
[2020-09-24] MEDS: ASPIRIN 81 MG TAB.CHEW PO SCH (09:46)
[2020-09-24] MEDS ORDERED: POTASSIUM CHLORIDE 20 MEQ TAB.PRT.SR PO SCH (10:00)
--- NOTE | 2020-09-24 13:50 | NUR ---
CALLED [facility] TO GIVE REPORT FOR CONTINUATION OF CARE. SPOKE TO CAROL GUAMAN PATIENT WILL BE GOING TO ROOM 15A. SPOKE WITH DAUGHTER CASTRO (DAUGHTER) TO INFORM HER THAT THE PATIENT IS TRANSFERRING TO SNF.
[2020-09-24] MEDS ORDERED: POTASSIUM CHLORIDE 20 MEQ TAB.PRT.SR PO ONE (14:15)
--- NOTE | 2020-09-24 14:34 | NUR ---
DISCHARGE NOTES PATIENT IS A/O X 1, VITALS REMAINED WITHIN NORMAL LIMIT, WITH NO SIGNS OF DISTRESS IN ROOM AIR, AFEBRILE. NO COMPLAIN OF PAIN. DAVENPORT CATH REMOVED AND MIDLINE REMOVED ORDERED BY DR. GARRETT. NO SIGNS OF BLEEDING AND NO REPORT OF PAIN. DISCHARGE INSTRUCTIONS WERE GIVEN TO [facility] ROWENA KRISHNAMURTHY RN. DISCHARGE PAPER WORK AND BELONGING LIST COMPLETED AND SIGNED BY TWO RNS. PATIENT LEFT TO THE LOBBY VIA GURNEY BY TWO FABRIC MACHINE OPERATOR.
== END 2020-09-24 14:30 | DRG 871 ==
LOC: ER 22:57 → TRANSITION 09-19 01:05 → TELE2 09-20 12:29 → MEDSG2 09-20 23:35
PROVIDERS: ADMIT Internal Medicine; ATTEND Internal Medicine
PROC: 05HA33Z Insertion of Infusion Device into Left Brachial Vein, Percutaneous Approach (ICD-10-PCS; principal; 2020-09-21)
DX: A41.89 Other specified sepsis (principal); N17.0 Acute kidney failure with tubular necrosis; U07.1 COVID-19; G93.41 Metabolic encephalopathy; E43 Unspecified severe protein-calorie malnutrition; N39.0 Urinary tract infection, site not specified; E87.2 Acidosis; E87.0 Hyperosmolality and hypernatremia; F03.90 Unspecified dementia, unspecified severity, without behavioral disturbance, psychotic disturbance, mood disturbance, and anxiety; E78.5 Hyperlipidemia, unspecified; E86.0 Dehydration; N13.9 Obstructive and reflux uropathy, unspecified; I11.0 Hypertensive heart disease with heart failure; I50.9 Heart failure, unspecified; E86.1 Hypovolemia; E87.6 Hypokalemia; E83.39 Other disorders of phosphorus metabolism; E11.9 Type 2 diabetes mellitus without complications; B96.1 Klebsiella pneumoniae [K. pneumoniae] as the cause of diseases classified elsewhere; E86.9 Volume depletion, unspecified
CPT/HCPCS: 36415; 71045-TC; 80048-TC; 80053-TC; 80061-TC; 80076-TC; 81001; 82550-TC; 83605-TC; 83735-TC; 83970; 84100-TC; 84155; 84165; 84484-TC; 85025-TC; 85730-TC; 87040-TC; 87081-TC; 87086-TC; 87186-TC; C9803; G0378; J0696; J1650; J2405; J2543; J3370; J3480; J3490; J7030; J7060; J7070; U0003